=== PATIENT | male | born 1990 | race African-American/Black ===

== ENCOUNTER 2022-02-18 15:40 | Emergency (ER) | payer BC ==
[~2022-02-18] VITALS: Ht 182.9 cm; Wt 101.9 kg
[2022-02-18 15:40] VITALS: BP 148/88
--- NOTE | 2022-02-18 16:16 | PHYS DOC ---
General Adult EDM: Chief Complaint: URINARY FREQUENCY HPI: HPI: Patient is a 32-year-old male coming in for urinary tension. Patient states he is only able to void small amounts. Has been worse over the past couple days. Patient is postop day 5 after a left biceps tendon repair at [facility]. Patient's last bowel movement was prior to the surgery. Patient was prescribed oxycodone which she has been taking, has not take any stool softeners until the past 2 days. Unable to have 1 small hard bowel movement. Patient denies any personal history of urinary retention, family or personal prostate problems. Denies any change in urine color or odor. Denies any testicular pain or penile discharge. Complains of pain in the low mid abdomen (DESHAWN STRATTON MD) Review of Systems: Review of Systems: All other systems within normal limits except for as noted in the HPI (DESHAWN STRATTON MD) Allergies: Allergies: Allergies Coded Allergies Type Severity Reaction Last Updated Verified Penicillins Allergy Unknown 02/18/22 Yes (DESHAWN STRATTON MD) Physical Exam: PE: Constitutional: Well developed, well nourished, no acute distress, non-toxic win earance. [] HENT: Normocephalic, atraumatic, bilateral external ears normal, nose normal. [] Eyes: PERRLA, conjunctiva normal, no discharge. [] Neck: No rigidity, supple, no stridor. [] Cardiovascular: Regular rate and rhythm, brisk cap refill [] Lungs & Thorax: Non labored symmetric respirations, no tachypnea or respiratory distress [] Abdomen: Soft, nondistended, tenderness in suprapubic area. Skin: Warm, dry, no erythema, no rash. [] Back: Unremarkable Extremities: No deformities, range of motion grossly intact, no lower extremity edema [] Neurologic: Alert and oriented X 3, no focal deficits noted. [] Psychologic: Affect normal, judgement normal, mood normal. [] (DESHAWN STRATTON MD) EKG: EKG: [] (DESHAWN STRATTON MD) Radiology/Procedures: Radiology/Procedures: [address] [address] IMAGING REPORT Signed PATIENT: MARTIN BOOACCOUNT: [id number] : 1990 LOCATION: ER AGE: 32 SEX: M EXAM STATUS: REG ER ORD. PHYSICIAN: DESHAWN STRATTON MD REASON: urine retention, unable to raise left arm do to pain PROCEDURE: CT ABDOMEN PELVIS WO CONTRAST PQRS Compliance Statement: One or more of the following individualized dose reduction techniques were utilized for this examination: 1. Automated exposure control 2. Adjustment of the mA and/or kV according to patient size 3. Use of iterative reconstruction technique CT ABDOMEN+PELVIS WO Clinical Indication: Reason: urine retention, unable to raise left arm do to pain / Spl. Instructions: / History: Comparison: None. Technique: Helical CT imaging of the abdomen and pelvis is performed without IV or oral contrast. Findings: Evaluation of solid organs and bowel is limited without oral and IV contrast, decreasing sensitivity for detection of abnormal findings. The lung bases are clear. Cardiac size is normal. The liver, gallbladder, spleen, pancreas, adrenal glands, abdominal aorta, and kidneys are normal. The stomach is unremarkable. There is no small bowel obstruction. There is moderate distention of the rectum with stool. No rectal wall thickening is identified. There is overall large colon stool volume. No colon wall thickening is identified. There is mild distention of the ascending and transverse colon. The appendix is normal. There is no abdominal adenopathy or free fluid. There is a small fat-containing umbilical hernia. The urinary bladder is decompressed, otherwise normal. The prostate and seminal vesicles are normal. There is no pelvic free fluid. No acute bone abnormality. There is vacuum disc phenomenon of L5/S1. IMPRESSION: There is large colon stool volume suggesting constipation. The rectum is moderately distended with stool, cannot exclude fecal impaction. There is no evidence of proctocolitis. Electronically signed by: Carl Ferrera MD (02/18/2022 4:59 PM) [facility] DICTATED AND SIGNED BY: CARL FERRERA MD DATE: 02/18/221651 CC: DESHAWN STRATTON MD; PCP,NO ~ [] (DESHAWN STRATTON MD) Heart Score: C/O Chest Pain: No Risk Factors: Risk Factors: DM, Current or recent (<one month) smoker, HTN, HLP, family history of CAD, obesity. Risk Scores: Score 0 - 3: 2.5% MACE over next 6 weeks - Discharge Home Score 4 - 6: 20.3% MACE over next 6 weeks - Admit for Clinical Observation Score 7 - 10: 72.7% MACE over next 6 weeks - Early Invasive Strategies (DESHAWN STRATTON MD) Course & Med Decision Making: Course & Med Decision Making Pertinent Labs and Imaging studies reviewed. (See chart for details) [] (DESHAWN STRATTON MD) Course & Med Decision Making Patient care handed off to me at checkout pending bowel movement. On reassessment patient did have a bowel movement in the room, was feeling better and wanted to go on home. Discussed management of constipation at home. Discussed cutting back or stopping opioids as soon as possible. Advised to follow-up with primary care physician as soon as he can. Gave return precautions to the ED. Family grateful, verbalized understanding and agreed with plan of discharge. (JAYCOB RUIZ MD) Dragon Disclaimer: Dragon Disclaimer: This electronic medical record was generated, in whole or in part, using a voice recognition dictation system. (DESHAWN STRATTON MD) Departure Departure: Impression: Primary Impression: Constipation Disposition: HOME / SELF CARE / HOMELESS Condition: STABLE Referrals: PCP,NO (PCP) Patient Instructions: Constipation, Adult Additional Instructions: Take MiraLAX, 2 caps per day with lots of water or juice. Continue until you have soft stools, then decrease to 1 Per day. DESHAWN STRATTON MD February 18, 2022 16:16 JAYCOB RUIZ MD February 18, 2022 19:12
[2022-02-18 16:42] LABS: CLARITY,URINE CLEAR; COLOR,URINE YELLOW; GLUCOSE,URINE NEG (NEG)
[2022-02-18 16:43] LABS: BACTERIA,URINE 0 /HPF (0-FEW); NITRITE,URINE NEG (NEG); RBC,URINE 0 /HPF (0-2); SQUAMOUS EPITHELIAL CELL,UR OCC /LPF; UROBILINOGEN,URINE 0.2 mg/dL (0.2 mg/dL); WBC,URINE 0 /HPF (0-4)
--- NOTE | 2022-02-18 17:01 | RAD ---
PQRS Compliance Statement: One or more of the following individualized dose reduction techniques were utilized for this examinat ion: 1. Automated exposure control 2. Adjustment of the mA and/or kV according to patient size 3. Use of iterative reconstruction technique CT ABDOMEN+PELVIS WO Clinical Indication: Reason: urine retention, unable to raise left arm do to pain / Spl. Instructions : / History: Comparison: None. Technique: Helical CT imaging of the abdomen and pelvis is performed without IV or oral contrast. Findings: Evaluation of solid organs and bowel is limited without oral and IV contrast, decreasing sensitivity for detection of abnormal findings. The lung bases are clear. Cardiac size is normal. The liver, gallbladder, spleen, pancreas, adrenal glands, abdominal aorta, and kidneys are normal. The stomach is unremarkable. There is no small bowel obstruction. There is moderate distention of the rectum with stool. No rectal wall thickening is identified. There is overall large colon stool volum e. No colon wall thickening is identified. There is mild distention of the ascending and transverse c olon. The appendix is normal. There is no abdominal adenopathy or free fluid. There is a small fat-co ntaining umbilical hernia. The urinary bladder is decompressed, otherwise normal. The prostate and seminal vesicles are normal. There is no pelvic free fluid. No acute bone abnormality. There is vacuum disc phenomenon of L5/S1. IMPRESSION: There is large colon stool volume suggesting constipation. The rectum is moderately distended with st ool, cannot exclude fecal impaction. There is no evidence of proctocolitis. Electronically signed by: Carl Ferrera MD (02/18/2022 4:59 PM) [facility]
[2022-02-18] MEDS ORDERED: SODIUM PHOSPHATES 19/7GM 133 ML ENEMA. ONE ×2 (17:31→17:38)
[2022-02-18] MEDS ORDERED: BISACODYL 10 MG SUPP.RECT ONE (17:31)
[2022-02-18] MEDS: BISACODYL 10 MG SUPP.RECT PR ONE (17:33)
[2022-02-18 17:44] LABS: BASO # 0.1 x10^3/uL (0.0-0.2); BASO % 1 % (0-3); EOS # 0.1 x10^3/uL (0.0-0.7); EOS % 1 % (0-3); HEMATOCRIT 42.5 % (39.0-53.0); HEMOGLOBIN 14.2 g/dL (13.0-17.5); LYMPH # 1.4 x10^3/uL (1.0-4.8); LYMPH % 12 % (24-48); MEAN CORPUSCULAR HEMOGLOBIN 32 pg (25-35); MEAN CORPUSCULAR HGB CONC 33 g/dL (31-37); MEAN CORPUSCULAR VOLUME 96 fL (79-100); MONO # 0.7 x10^3/uL (0.0-1.1); MONO % 6 % (0-9); NEUT # 9.6 x10^3uL (1.8-7.7); NEUT % 81 % (31-73); PLATELET COUNT 230 x10^3/uL (140-400); RED BLOOD COUNT 4.43 x10^6/uL (4.30-5.70); RED CELL DISTRIBUTION WIDTH 12.1 % (11.5-14.5); WHITE BLOOD COUNT 11.8 x10^3/uL (4.0-11.0)
[2022-02-18 17:54] LABS: CALCIUM 9.4 mg/dL (8.5-10.1); CREATININE 1.6 mg/dL (0.7-1.3); GFR 60.2; POTASSIUM 4.5 mmol/L (3.5-5.1)
[2022-02-18 17:59] LABS: ALBUMIN 3.7 g/dL (3.4-5.0); ALBUMIN/GLOBULIN RATIO 0.9 (1.0-1.7); MAGNESIUM 2.4 mg/dL (1.8-2.4); TOTAL PROTEIN 7.8 g/dL (6.4-8.2)
[2022-02-18] MEDS: MINERAL OIL 133 ML ENEMA. PR ONE (18:26)
== END 2022-02-18 19:13 | disposition home or self-care (01) ==
LOC: ER 15:40
DX: K59.00 Constipation, unspecified (principal); R33.9 Retention of urine, unspecified; Z88.0 Allergy status to penicillin
CPT/HCPCS: 36415; 74176; 80053; 81001; 83735; 85025; 99284